=== PATIENT | male | born 1955 | race Caucasian/White ===

== ENCOUNTER 2017-09-15 18:31 | Inpatient (IN) | payer SELFPAY ==
[2017-09-15 19:25] LABS: BASO % 0.2 % (0.0-1.0); HEMOGLOBIN 13.7 g/dl (13.5-17.5); IMMATURE GRANULOCYTE % 0.4 % (0-3.0); LYMPH # 1.3 10^3/uL (1.5-4.5); LYMPH % 7.9 % (24.0-44.0); MEAN CORPUSCULAR HEMOGLOBIN 31.1 pg (27.0-33.0); MEAN CORPUSCULAR HGB CONC 35.1 g/dl (32.0-36.5); MEAN CORPUSCULAR VOLUME 88.4 fl (80.0-96.0); MONO # 0.4 10^3/uL (0.0-0.8); MONO % 2.5 % (0.0-5.0); NEUTROPHILS # 14.3 10^3/uL (1.8-7.7); PLATELET COUNT, AUTOMATED 163 10^3/uL (150-450); RED BLOOD COUNT 4.41 10^6/uL (4.30-6.10); RED CELL DISTRIBUTION WIDTH 13.1 % (11.5-14.5); WHITE BLOOD COUNT 16.1 10^3/uL (4.0-10.0)
[2017-09-15 19:43] LABS: ALBUMIN 3.1 GM/DL (3.2-5.2); ALBUMIN/GLOBULIN RATIO 0.79 (1.00-1.93); ALKALINE PHOSPHATASE 28 U/L (45-117); ALT/SGPT 42 U/L (12-78); ANION GAP 9 MEQ/L (8-16); AST/SGOT 62 U/L (7-37); BILIRUBIN,DIRECT 0.2 MG/DL (0.0-0.2); BILIRUBIN,TOTAL 0.7 MG/DL (0.2-1.0); BLOOD UREA NITROGEN 20 MG/DL (7-18); CALCIUM LEVEL 8.5 MG/DL (8.5-10.1); CARBON DIOXIDE LEVEL 29 MEQ/L (21-32); CHLORIDE LEVEL 93 MEQ/L (98-107); GLOMERULAR FILTRATION RATE 55.2 (>56); GLUCOSE, FASTING 127 MG/DL (70-100); POTASSIUM SERUM 2.7 MEQ/L (3.5-5.1); SODIUM LEVEL 131 MEQ/L (136-145)
[2017-09-15] MEDS: ACETAMINOPHEN 325 MG TAB PO (19:50)
[2017-09-15] MEDS: CLINDAMYCIN 900 MG in APPROPRIATE DILUENT 1 EA IV (19:52)
[2017-09-15] MEDS: POTASSIUM CHLORIDE 10 MEQ SR TABLET PO ×2 (20:17→22:00)
[2017-09-15 20:21] LABS: CK-MB VALUE MASS 2.7 NG/ML (<3.6); TROPONIN I 0.05 NG/ML (< 0.10)
[2017-09-15 20:34] LABS: CPK CREATINE PHOSPHOKINASE 2005 U/L (39-308); MB/CK RELATIVE INDEX 0.13 (< OR =4)
[2017-09-15 20:35] LABS: LACTIC ACID SEPSIS PROTOCOL 1.1 MMOL/L (0.4-2.0)
[2017-09-15] MEDS: ADACEL/BOOSTRIX VACCINE (DIPHTH/PERTUSS/ACELL/TETANUS)0.5ML SYR (90715) IM (20:46)
[2017-09-15] MEDS: SENOKOT S TAB PO (21:00)
[2017-09-15] MEDS: LACTOBACILLUS ACIDOPHILUS CAP (BACID) GT (21:00)
[2017-09-15] MEDS ORDERED: PERCOCET 5MG/325MG TAB PO (21:45)
[2017-09-15] MEDS ORDERED: ONDANSETRON 4MG/2ML VIAL (J2405) IV (21:45)
[2017-09-15] MEDS ORDERED: ACETAMINOPHEN TAB 650MG DOSE (2X325MG) PO (21:45)
[2017-09-15] MEDS ORDERED: MORPHINE 4 MG/ML 1ML VIAL/SYRINGE (J2270) IV (21:45)
[2017-09-15 22:29] LABS: ESTIMATED AVERAGE GLUCOSE 105 MG/DL (60-110); HEMOGLOBIN A1c 5.3 %
[2017-09-16 02:23] LABS: TROPONIN I 0.03 NG/ML (< 0.10)
[2017-09-16] MEDS: CLINDAMYCIN 600 MG in APPROPRIATE DILUENT 1 EA IV ×4 (02:25→21:09)
[2017-09-16] MEDS: HEPARIN SOD (PORCINE) 5000 UNITS/ML VIAL SC ×3 (06:21→21:10)
[2017-09-16 06:36] LABS: BASO % 0.2 % (0.0-1.0); HEMATOCRIT 39.6 % (42.0-52.0); HEMOGLOBIN 13.8 g/dl (13.5-17.5); IMMATURE GRANULOCYTE % 0.4 % (0-3.0); LYMPH # 1.1 10^3/uL (1.5-4.5); LYMPH % 11.3 % (24.0-44.0); MEAN CORPUSCULAR HEMOGLOBIN 31.2 pg (27.0-33.0); MEAN CORPUSCULAR HGB CONC 34.8 g/dl (32.0-36.5); MEAN CORPUSCULAR VOLUME 89.4 fl (80.0-96.0); MONO # 0.4 10^3/uL (0.0-0.8); NEUTROPHILS # 7.9 10^3/uL (1.8-7.7); NEUTROPHILS % 84.1 % (36.0-66.0); PLATELET COUNT, AUTOMATED 161 10^3/uL (150-450); RED BLOOD COUNT 4.43 10^6/uL (4.30-6.10); RED CELL DISTRIBUTION WIDTH 13.2 % (11.5-14.5); WHITE BLOOD COUNT 9.4 10^3/uL (4.0-10.0)
[2017-09-16 06:56] LABS: ANION GAP 6 MEQ/L (8-16); BLOOD UREA NITROGEN 18 MG/DL (7-18); CALCIUM LEVEL 8.7 MG/DL (8.5-10.1); CARBON DIOXIDE LEVEL 32 MEQ/L (21-32); CHLORIDE LEVEL 98 MEQ/L (98-107); GLOMERULAR FILTRATION RATE > 60.0 (>56); GLUCOSE, FASTING 104 MG/DL (70-100); SODIUM LEVEL 136 MEQ/L (136-145)
[2017-09-16] MEDS: LOSARTAN 50 MG TAB PO (08:51)
[2017-09-16] MEDS: LACTOBACILLUS ACIDOPHILUS CAP (BACID) PO ×3 (08:51→21:09)
[2017-09-16] MEDS: SENOKOT S TAB PO ×2 (08:51→21:10)
[2017-09-16] MEDS: OMEGA-3 1050MG CAPSULE PO (08:51)
[2017-09-16] MEDS: POTASSIUM CHLORIDE 10 MEQ SR TABLET PO (08:52)
[2017-09-16 10:14] LABS: MAGNESIUM LEVEL 2.1 MG/DL (1.8-2.4)
[2017-09-16 10:33] LABS: TROPONIN I < 0.02 NG/ML (< 0.10)
[2017-09-16 15:22] LABS: ANION GAP 6 MEQ/L (8-16); BLOOD UREA NITROGEN 17 MG/DL (7-18); CALCIUM LEVEL 8.2 MG/DL (8.5-10.1); CARBON DIOXIDE LEVEL 32 MEQ/L (21-32); CHLORIDE LEVEL 102 MEQ/L (98-107); CREATININE FOR GFR 1.04 MG/DL (0.70-1.30); GLOMERULAR FILTRATION RATE > 60.0 (>56); GLUCOSE, FASTING 107 MG/DL (70-100); MAGNESIUM LEVEL 2.1 MG/DL (1.8-2.4); POTASSIUM SERUM 3.6 MEQ/L (3.5-5.1); SODIUM LEVEL 140 MEQ/L (136-145)
[2017-09-16] MEDS: KETOCONAZOLE 2% CREAM TOP (17:45)
[2017-09-16 18:32] LABS: TROPONIN I < 0.02 NG/ML (< 0.10)
[2017-09-17] MEDS: CLINDAMYCIN 600 MG in APPROPRIATE DILUENT 1 EA IV ×2 (01:49→08:13)
[2017-09-17] MEDS: HEPARIN SOD (PORCINE) 5000 UNITS/ML VIAL SC ×3 (05:38→21:15)
[2017-09-17 06:55] LABS: BASO % 0.3 % (0.0-1.0); EOS # 0.1 10^3/uL (0.0-0.50); EOS % 1.7 % (0.0-3.0); HEMATOCRIT 36.9 % (42.0-52.0); HEMOGLOBIN 12.5 g/dl (13.5-17.5); IMMATURE GRANULOCYTE % 0.3 % (0-3.0); LYMPH # 1.6 10^3/uL (1.5-4.5); LYMPH % 26.7 % (24.0-44.0); MEAN CORPUSCULAR HEMOGLOBIN 30.9 pg (27.0-33.0); MEAN CORPUSCULAR HGB CONC 33.9 g/dl (32.0-36.5); MEAN CORPUSCULAR VOLUME 91.1 fl (80.0-96.0); MONO # 0.5 10^3/uL (0.0-0.8); MONO % 8.6 % (0.0-5.0); NEUTROPHILS # 3.6 10^3/uL (1.8-7.7); NEUTROPHILS % 62.4 % (36.0-66.0); PLATELET COUNT, AUTOMATED 162 10^3/uL (150-450); RED BLOOD COUNT 4.05 10^6/uL (4.30-6.10); RED CELL DISTRIBUTION WIDTH 13.3 % (11.5-14.5); WHITE BLOOD COUNT 5.8 10^3/uL (4.0-10.0)
[2017-09-17 07:19] LABS: ANION GAP 7 MEQ/L (8-16); BLOOD UREA NITROGEN 15 MG/DL (7-18); CALCIUM LEVEL 8.2 MG/DL (8.5-10.1); CARBON DIOXIDE LEVEL 29 MEQ/L (21-32); CHLORIDE LEVEL 104 MEQ/L (98-107); CREATININE FOR GFR 0.95 MG/DL (0.70-1.30); GLOMERULAR FILTRATION RATE > 60.0 (>56); GLUCOSE, FASTING 92 MG/DL (70-100); POTASSIUM SERUM 3.3 MEQ/L (3.5-5.1); SODIUM LEVEL 140 MEQ/L (136-145)
[2017-09-17 07:32] LABS: MAGNESIUM LEVEL 1.9 MG/DL (1.8-2.4)
[2017-09-17] MEDS: LACTOBACILLUS ACIDOPHILUS CAP (BACID) PO ×3 (08:14→21:16)
[2017-09-17] MEDS: SENOKOT S TAB PO ×2 (08:14→21:16)
[2017-09-17] MEDS: POTASSIUM CHLORIDE 10 MEQ SR TABLET PO (08:14)
[2017-09-17] MEDS: OMEGA-3 1050MG CAPSULE PO (08:15)
[2017-09-17] MEDS: LOSARTAN 50 MG TAB PO (08:15)
[2017-09-17] MEDS: KETOCONAZOLE 2% CREAM TOP (08:16)
[2017-09-17] MEDS: CLINDAMYCIN 150 MG CAP PO ×2 (12:10→17:58)
[2017-09-18] MEDS: CLINDAMYCIN 150 MG CAP PO ×2 (00:11→06:13)
[2017-09-18] MEDS: HEPARIN SOD (PORCINE) 5000 UNITS/ML VIAL SC (06:13)
[2017-09-18 07:01] LABS: BASO % 0.3 % (0.0-1.0); EOS # 0.2 10^3/uL (0.0-0.50); EOS % 2.7 % (0.0-3.0); HEMATOCRIT 39.7 % (42.0-52.0); HEMOGLOBIN 13.2 g/dl (13.5-17.5); IMMATURE GRANULOCYTE % 0.3 % (0-3.0); LYMPH # 2.1 10^3/uL (1.5-4.5); LYMPH % 36.3 % (24.0-44.0); MEAN CORPUSCULAR HEMOGLOBIN 30.3 pg (27.0-33.0); MEAN CORPUSCULAR HGB CONC 33.2 g/dl (32.0-36.5); MEAN CORPUSCULAR VOLUME 91.3 fl (80.0-96.0); MONO # 0.5 10^3/uL (0.0-0.8); MONO % 8.5 % (0.0-5.0); NEUTROPHILS % 51.9 % (36.0-66.0); PLATELET COUNT, AUTOMATED 187 10^3/uL (150-450); RED BLOOD COUNT 4.35 10^6/uL (4.30-6.10); RED CELL DISTRIBUTION WIDTH 13.3 % (11.5-14.5); WHITE BLOOD COUNT 5.9 10^3/uL (4.0-10.0)
[2017-09-18 07:21] LABS: ANION GAP 7 MEQ/L (8-16); BLOOD UREA NITROGEN 16 MG/DL (7-18); CALCIUM LEVEL 8.1 MG/DL (8.5-10.1); CARBON DIOXIDE LEVEL 27 MEQ/L (21-32); CHLORIDE LEVEL 108 MEQ/L (98-107); CREATININE FOR GFR 0.79 MG/DL (0.70-1.30); GLOMERULAR FILTRATION RATE > 60.0 (>56); GLUCOSE, FASTING 96 MG/DL (70-100); POTASSIUM SERUM 3.6 MEQ/L (3.5-5.1); SODIUM LEVEL 142 MEQ/L (136-145)
[2017-09-18] MEDS: KETOCONAZOLE 2% CREAM TOP (09:20)
[2017-09-18] MEDS: LACTOBACILLUS ACIDOPHILUS CAP (BACID) PO (09:20)
[2017-09-18] MEDS: OMEGA-3 1050MG CAPSULE PO (09:21)
[2017-09-18] MEDS: SENOKOT S TAB PO (09:21)
[2017-09-18] MEDS: LOSARTAN 50 MG TAB PO (09:21)
== END 2017-09-18 11:05 | disposition home or self-care (01) | DRG 720 ==
LOC: M PCU 09-16 08:07 → M MS5PR 09-17 00:33 → M ED 18:31 → M ED INP 21:32 → M PED 09-17 19:45
DX: A41.9 Sepsis, unspecified organism (principal); Z68.42 Body mass index [BMI] 45.0-49.9, adult; I10 Essential (primary) hypertension; E66.01 Morbid (severe) obesity due to excess calories; E87.6 Hypokalemia; Q61.3 Polycystic kidney, unspecified; L03.115 Cellulitis of right lower limb; L03.031 Cellulitis of right toe; Z79.899 Other long term (current) drug therapy; Z66 Do not resuscitate; B35.3 Tinea pedis